=== PATIENT | male | born 1965 | race African-American/Black ===

== ENCOUNTER 2016-10-17 18:56 | Emergency (ER) | payer MEDICAID, OTHER ==
[~2016-10-17] VITALS: Ht 185.4 cm; Wt 117.0 kg
[~2016-10-17 18:56] MED LIST: BUSPAR10 MG ORAL; DIURIL25 MG ORAL; HYDRALAZINE HCL50 MG ORAL; LISINOPRIL20 MG ORAL; LISINOPRIL5 MG ORAL; MELOXICAM15 MG PO; NAPROXEN25 G1 MC
[2016-10-17] MEDS ORDERED: Ketorolac 60mg Inj IM ONE (20:15)
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
[2016-10-17] MEDS ORDERED: IBUPROFEN600 MG ORAL (20:57)
[2016-10-17] MEDS ORDERED: NORCO 5-325 TA1 EACH ORAL (20:57)
[2016-10-17] MEDS ORDERED: CYCLOBENZAPRINE10 MG ORAL (20:57)
[2016-10-17 21:08] VITALS: BP 146/90
[2016-10-17 21:09] VITALS: BP 146/90
--- NOTE | 2016-10-18 17:46 | Diagnostic Imaging Report ---
Indication: Chest pain Technique: Two views of the chest Comparison: 12/10/2015 single view chest Findings: Lungs and pleural spaces are clear. Heart is borderline enlarged. Aorta is tortuous. There are degenerative spondylosis changes Impression: Borderline cardiomegaly No acute process.
== END 2016-10-17 21:11 | disposition home or self-care (01) ==
LOC: EMR 19:45
DX: S00.83XA Contusion of other part of head, initial encounter (principal); S20.212A Contusion of left front wall of thorax, initial encounter; S16.1XXA Strain of muscle, fascia and tendon at neck level, initial encounter; V43.52XA Car driver injured in collision with other type car in traffic accident, initial encounter; Y92.89 Other specified places as the place of occurrence of the external cause; I10 Essential (primary) hypertension; Z88.0 Allergy status to penicillin
CPT/HCPCS: 71020; 96372; 99283

== ENCOUNTER 2017-01-16 09:37 | Emergency (ER) | payer SELFPAY ==
[~2017-01-16] VITALS: Ht 185.4 cm; Wt 117.9 kg
[~2017-01-16 09:37] MED LIST changes: +CYCLOBENZAPRINE10 MG ORAL; +IBUPROFEN600 MG ORAL; +NORCO 5-325 TA1 EACH ORAL
--- NOTE | 2017-01-16 09:52 | Emergency Room Report ---
History of Present Illness General Chief Complaint: Abdominal Pain Source: Patient Present Illness HPI The patient presents with left flank and groin pain. This began on Saturday. It is severe. Vomited one time. He was seen at [facility] had a CT done that showed a kidney stone on the left-hand side. He's had some chills but no documented fever. They gave him a prescription for [place] but this is not controlling the pain. He's never had this problem before. He denies any diarrhea. Pain rated 10/10, sharp and burning, radiating to groin from L lower abdomen. No dysuria. They also prescribed a green pill to "dissolve" the stone. No rashes, headache, joint pain, depression, diabetes. Allergies: Coded Allergies: PENICILLINS (Verified Allergy, Unknown, 12/10/15) Patient History Past Medical History: see triage record Social History: Denies: smoking Social History Narrative He drove himself here Reviewed Nursing Documentation: PMH: Agreed, PSxH: Agreed Nursing Documentation-PMH Past Medical History: No History, Except For Hx Hypertension: Yes Review of Systems All Other Systems: negative except mentioned in HPI Physical Exam Vital Signs Date Time Temp Pulse Resp B/P Pulse Ox O2 Delivery O2 Flow Rate FiO2 01/16/17 09:42 97.9 57 16 188/109 98 Room Air Sp02 EP Interpretation: reviewed, normal General Appearance: alert, GCS 15, mild distress Head: normocephalic Eyes: bilateral eye PERRL, bilateral eye normal inspection ENT: moist mucus membranes Neck: supple Respiratory: lungs clear, normal breath sounds Cardiovascular #1: regular rate, rhythm Cardiovascular #2: 2+ radial (R) Gastrointestinal: normal inspection, normal bowel sounds, non tender, no mass, non-distended Musculoskeletal: back normal, gait/station normal, normal range of motion Neurologic: alert, oriented x3, grossly normal Psychiatric: other - in pain Skin: normal inspection, warm/dry Medical Decision Making Diagnostic Impression: Primary Impression: Left ureteral stone ER Course Patient presents with left flank and groin pain. He reports that a CT scan was done which revealed a kidney stone. We will be obtaining at CT results from [facility]. The been and that we may get an ultrasound or repeat CT. The patient will receive labs here and urinalysis. In addition to that and get IV hydration and analgesia. CT [facility] with 2mm stone L. Creat = 1.19. Labs with creat 1.4. Hematuria without pyuria. Normal WBC. Patient pain free with analgesia and hydration. Discussed need to collect stone. Patient stable for outpatient observation and treatment. Laboratory Tests Test 01/16/17 09:58 01/16/17 10:00 White Blood Count 7.5 K/UL (4.8-10.8) Red Blood Count 5.22 M/UL (4.70-6.10) Hemoglobin 16.5 G/DL (14.2-18.0) Hematocrit 49.6 % (42.0-52.0) Mean Corpuscular Volume 95 FL (80-99) Mean Corpuscular Hemoglobin 31.7 PG (27.0-31.0) H Mean Corpuscular Hemoglobin Concent 33.3 G/DL (32.0-36.0) Red Cell Distribution Width 11.4 % (11.6-14.8) L Platelet Count 349 K/UL (150-450) Mean Platelet Volume 7.8 FL (6.5-10.1) Neutrophils (%) (Auto) 73.2 % (45.0-75.0) Lymphocytes (%) (Auto) 17.9 % (20.0-45.0) L Monocytes (%) (Auto) 7.9 % (1.0-10.0) Eosinophils (%) (Auto) 0.3 % (0.0-3.0) Basophils (%) (Auto) 0.8 % (0.0-2.0) Sodium Level 138 mEQ/L (135-145) Potassium Level 3.5 mEQ/L (3.4-4.9) Chloride Level 96 mEQ/L (98-107) L Carbon Dioxide Level 21 mEQ/L (20-30) Anion Gap 21 (5-15) H Blood Urea Nitrogen 9 mg/dL (7-23) Creatinine 1.4 mg/dL (0.7-1.2) H Estimate Glomerular Filtration Rate > 60 mL/min (>60) Glucose Level 133 mg/dL (74-106) H Calcium Level 9.7 mg/dL (8.6-10.2) Total Bilirubin 1.6 mg/dL (0.0-1.2) H Direct Bilirubin 0.2 mg/dL (0.1-0.3) Aspartate Amino Transferase (AST) 25 U/L (5-40) Alanine Aminotransferase (ALT) 24 U/L (3-41) Alkaline Phosphatase 73 U/L (40-129) Total Protein 8.0 g/dL (6.6-8.7) Albumin 4.7 g/dL (3.5-5.2) Globulin 3.3 g/dL Albumin/Globulin Ratio 1.4 (1.0-2.7) Lipase 32 U/L (< 60) Urine Color Pale yellow Urine Appearance Clear Urine pH 8 (4.5-8.0) Urine Specific [place] 1.010 (1.005-1.035) Urine Protein Negative (NEGATIVE) Urine Glucose (UA) Negative (NEGATIVE) Urine Ketones 2+ (NEGATIVE) H Urine Occult Blood 3+ (NEGATIVE) H Urine Nitrite Negative (NEGATIVE) Urine Bilirubin Negative (NEGATIVE) Urine Urobilinogen Normal MG/DL (0.0-1.0) Urine Leukocyte Esterase Negative (NEGATIVE) Urine RBC 10-15 /HPF (0 - 0) H Urine WBC 0-2 /HPF (0 - 0) Urine Squamous Epithelial Cells Occasional /LPF Urine Bacteria Few /HPF (NONE) Last Vital Signs Date Time Temp Pulse Resp B/P Pulse Ox O2 Delivery O2 Flow Rate FiO2 01/16/17 13:12 78 16 130/80 98 Room Air 01/16/17 10:29 97.9 Status: improved Disposition: HOME, SELF-CARE Condition: Improved Keith Hand M.D. January 16, 2017 09:51
[2017-01-16] MEDS ORDERED: Morphine Sulfate 4mg/ml Inj IVP ONE (10:00)
[2017-01-16] MEDS ORDERED: Ketorolac 30mg Inj IV ONE (10:00)
[2017-01-16 10:03] VITALS: BP 188/109
[2017-01-16 10:07] LABS: BASOPHILS % (AUTO) 0.8 % (0.0-2.0); EOSINOPHILS % (AUTO) 0.3 % (0.0-3.0); LYMPHOCYTES % (AUTO) 17.9 % (20.0-45.0); MEAN CORPUSCULAR HEMOGLOBIN 31.7 PG (27.0-31.0); MEAN CORPUSCULAR HGB CONC 33.3 G/DL (32.0-36.0); MEAN CORPUSCULAR VOLUME 95 FL (80-99); MEAN PLATELET VOLUME 7.8 FL (6.5-10.1); MONOCYTES % (AUTO) 7.9 % (1.0-10.0); NEUTROPHILS % (AUTO) 73.2 % (45.0-75.0); PLATELET COUNT 349 K/UL (150-450); RED BLOOD COUNT 5.22 M/UL (4.70-6.10); RED CELL DISTRIBUTION WIDTH 11.4 % (11.6-14.8); WHITE BLOOD COUNT 7.5 K/UL (4.8-10.8)
[2017-01-16 10:21] LABS: ALANINE AMINOTRANSFERASE 24 U/L (3-41); ALBUMIN/GLOBULIN RATIO 1.4 (1.0-2.7); ANION GAP 21 (5-15); ASPARTATE AMINO TRANSFERASE 25 U/L (5-40); CALCIUM 9.7 mg/dL (8.6-10.2); CARBON DIOXIDE 21 mEQ/L (20-30); CHLORIDE 96 mEQ/L (98-107); CREATININE 1.4 mg/dL (0.7-1.2); GLOMERULAR FILTRATION RATE > 60 mL/min (>60); HEMOLYSIS 3; LIPASE 32 U/L (< 60); POTASSIUM 3.5 mEQ/L (3.4-4.9); SODIUM 138 mEQ/L (135-145)
[2017-01-16 10:34] LABS: BILIRUBIN,DIRECT 0.2 mg/dL (0.1-0.3)
[2017-01-16 11:47] VITALS: BP 169/77
[2017-01-16 11:53] LABS: APPEARANCE,URINE CLEAR; KETONES,URINE 2+ (NEGATIVE); LEUKOCYTE ESTERASE ,URINE NEGATIVE (NEGATIVE); NITRITE,URINE NEGATIVE (NEGATIVE); PH,URINE 8 (4.5-8.0); PROTEIN,URINE NEGATIVE (NEGATIVE); UROBILINOGEN,URINE NORMAL MG/DL (0.0-1.0)
[2017-01-16 12:34] LABS: BACTERIA,URINE FEW /HPF; SQUAMOUS EPITHELIAL CELL,UR OCCASIONAL /LPF (NONE/OCC); WBC,URINE 0-2 /HPF (0 - 0)
[2017-01-16 13:12] VITALS: BP 130/80
== END 2017-01-16 13:00 | disposition home or self-care (01) ==
LOC: EMR 10:06
DX: N20.1 Calculus of ureter (principal); R11.10 Vomiting, unspecified; Z88.6 Allergy status to analgesic agent; I10 Essential (primary) hypertension
CPT/HCPCS: 36415; 80053; 81003; 82248; 83690; 85025; 96360; 96361; 96374; 96375; 99284; J1885; J2270; J2405

== ENCOUNTER 2018-01-22 21:08 | Inpatient (IN) | payer SELFPAY ==
[~2018-01-22] VITALS: Ht 185.4 cm; Wt 118.4 kg
[2018-01-22] MEDS ORDERED: NKM (21:26)
[2018-01-22 21:35] VITALS: BP 171/78
--- NOTE | 2018-01-22 21:58 | Emergency Room Report ---
History of Present Illness General Chief Complaint: Headache Source: Patient Present Illness HPI Patient is a 52-year-old male who presented after increased headache and associated dizziness. Patient reports having increased left-sided arm numbness which is intermittent in nature. Patient states this had been on and off for several weeks. Patient has prior history of hypertension but does not seek medical care regularly. He is unsure of his cholesterol. He denies any smoking. The patient denies any fever. Allergies: Coded Allergies: PENICILLINS (Verified Allergy, Unknown, 12/10/15) Patient History Past Medical History: see triage record Reviewed Nursing Documentation: PMH: Agreed; PSxH: Agreed Nursing Documentation-PMH Past Medical History: No History, Except For Hx Hypertension: Yes Review of Systems All Other Systems: negative except mentioned in HPI Physical Exam Vital Signs Date Time Temp Pulse Resp B/P (MAP) Pulse Ox O2 Delivery O2 Flow Rate FiO2 01/22/18 21:19 97.6 87 16 187/96 98 Room Air 97.5 Sp02 EP Interpretation: reviewed, normal General Appearance: normal inspection, well appearing, no apparent distress, alert, GCS 15, non-toxic Head: atraumatic ENT: normal ENT inspection, hearing grossly normal, normal voice Neck: normal inspection, full range of motion, supple, no bony tend Respiratory: normal inspection, lungs clear, normal breath sounds, no respiratory distress, no retraction, no wheezing Cardiovascular #1: regular rate, rhythm, no edema Gastrointestinal: normal inspection, normal bowel sounds, non tender, soft, no guarding, no hernia Genitourinary: no CVA tenderness Musculoskeletal: normal inspection, back normal, normal range of motion Neurologic: normal inspection, alert, oriented x3, responsive, harness worker 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 Differential diagnosis included but not limited to urinary tract infection, anemia, arrhythmia, abdominal aortic aneurysm, CVA, subarachnoid hemorrhage, benign positional vertigo.Because of complexity of patient's case laboratory testing and imaging studies were ordered.The laboratory studies are unremarkable. Patient was noted to have the bradycardia on EKG with a heart rate in the 40s. Patient was given aspirin.Dr. Couch was contacted for inpatient management due to need for inpatient monitoring and treatment. Labs Test 01/22/18 22:15 White Blood Count 5.5 K/UL (4.8-10.8) Red Blood Count 4.89 M/UL (4.70-6.10) Hemoglobin 15.5 G/DL (14.2-18.0) Hematocrit 45.2 % (42.0-52.0) Mean Corpuscular Volume 92 FL (80-99) Mean Corpuscular Hemoglobin 31.6 PG (27.0-31.0) Mean Corpuscular Hemoglobin Concent 34.2 G/DL (32.0-36.0) Red Cell Distribution Width 11.1 % (11.6-14.8) Platelet Count 307 K/UL (150-450) Mean Platelet Volume 7.3 FL (6.5-10.1) Neutrophils (%) (Auto) 41.7 % (45.0-75.0) Lymphocytes (%) (Auto) 44.1 % (20.0-45.0) Monocytes (%) (Auto) 9.6 % (1.0-10.0) Eosinophils (%) (Auto) 2.6 % (0.0-3.0) Basophils (%) (Auto) 2.1 % (0.0-2.0) Prothrombin Time 10.7 SEC (9.30-11.50) Prothromb Time International Ratio 1.0 (0.9-1.1) Activated Partial Thromboplast Time 32 SEC (23-33) Sodium Level 137 MMOL/L (136-145) Potassium Level 3.5 MMOL/L (3.5-5.1) Chloride Level 104 MMOL/L (98-107) Carbon Dioxide Level 25 MMOL/L (21-32) Anion Gap 8 mmol/L (5-15) Blood Urea Nitrogen 11 mg/dL (7-18) Creatinine 1.1 MG/DL (0.55-1.30) Estimat Glomerular Filtration Rate > 60 mL/min (>60) Glucose Level 100 MG/DL (74-106) Calcium Level 9.4 MG/DL (8.5-10.1) Total Bilirubin 1.1 MG/DL (0.2-1.0) Direct Bilirubin 0.2 MG/DL (0.0-0.3) Aspartate Amino Transf (AST/SGOT) 24 U/L (15-37) Alanine Aminotransferase (ALT/SGPT) 34 U/L (12-78) Alkaline Phosphatase 62 U/L (46-116) Total Creatine Kinase 520 U/L (26-308) Creatine Kinase MB 1.7 NG/ML (0.0-3.6) Creatine Kinase MB Relative Index 0.3 Troponin I 0.005 ng/mL (0.000-0.056) Pro-B-Type Natriuretic Peptide 37 pg/mL (0-125) Total Protein 7.7 G/DL (6.4-8.2) Albumin 4.0 G/DL (3.4-5.0) Globulin 3.7 g/dL Albumin/Globulin Ratio 1.1 (1.0-2.7) EKG Diagnostic Results Rate: bradycardiac Rhythm: NSR - 43 ST Segments: no acute changes ASA given to the pt in ED: Yes Rhythm Strip Diag. Results EP Interpretation: yes Rhythm: NSR, no PVC's, no ectopy Last Vital Signs Date Time Temp Pulse Resp B/P (MAP) Pulse Ox O2 Delivery O2 Flow Rate FiO2 01/22/18 21:19 97.6 87 16 187/96 98 Room Air 97.5 Status: unchanged Disposition: ADMITTED INPATIENT Condition: Serious Referrals: NOT CHOSEN IPA/,REFERRING (PCP) Manny Willams MD January 22, 2018 21:58
[2018-01-22] MEDS ORDERED: Nitroglycerin Subl 0.4mg tab SL PRN (22:45)
[2018-01-22] MEDS ORDERED: Aspirin Baby 81mg ORAL ONE (22:45)
[2018-01-22 23:00] VITALS: BP 114/94
[2018-01-22 23:23] LABS: BASOPHILS % (AUTO) 2.1 % (0.0-2.0); EOSINOPHILS % (AUTO) 2.6 % (0.0-3.0); HEMATOCRIT 45.2 % (42.0-52.0); HEMOGLOBIN 15.5 G/DL (14.2-18.0); LYMPHOCYTES % (AUTO) 44.1 % (20.0-45.0); MEAN CORPUSCULAR VOLUME 92 FL (80-99); MONOCYTES % (AUTO) 9.6 % (1.0-10.0); NEUTROPHILS % (AUTO) 41.7 % (45.0-75.0); PLATELET COUNT 307 K/UL (150-450); RED BLOOD COUNT 4.89 M/UL (4.70-6.10); RED CELL DISTRIBUTION WIDTH 11.1 % (11.6-14.8); WHITE BLOOD COUNT 5.5 K/UL (4.8-10.8)
[2018-01-22 23:27] LABS: ANION GAP 8 mmol/L (5-15); BLOOD UREA NITROGEN 11 mg/dL (7-18); CALCIUM 9.4 MG/DL (8.5-10.1); CARBON DIOXIDE 25 MMOL/L (21-32); CHLORIDE 104 MMOL/L (98-107); CREATININE 1.1 MG/DL (0.55-1.30); POTASSIUM 3.5 MMOL/L (3.5-5.1); SODIUM 137 MMOL/L (136-145)
[2018-01-22 23:42] LABS: ALANINE AMINOTRANSFERASE 34 U/L (12-78); ALBUMIN/GLOBULIN RATIO 1.1 (1.0-2.7); ALKALINE PHOSPHATASE 62 U/L (46-116); ASPARTATE AMINO TRANSFERASE 24 U/L (15-37); BILIRUBIN,TOTAL 1.1 MG/DL (0.2-1.0); CKMB 1.7 NG/ML (0.0-3.6); CREATINE KINASE 520 U/L (26-308)
[2018-01-23] VITALS (9 sets, daily range): BP systolic 119–180; BP diastolic 59–97
[2018-01-23 00:05] LABS: BILIRUBIN,DIRECT 0.2 MG/DL (0.0-0.3)
[2018-01-23] MEDS ORDERED: Nitroglycerin Subl 0.4mg tab SL PRN (03:30)
[2018-01-23] MEDS: HydrALAZINE 10mg Tab ORAL SCH ×3 (05:49→21:02)
[2018-01-23 07:31] LABS: ALBUMIN/GLOBULIN RATIO 1.1 (1.0-2.7); ALKALINE PHOSPHATASE 63 U/L (46-116); ANION GAP 16 mmol/L (5-15); ASPARTATE AMINO TRANSFERASE 28 U/L (15-37); BILIRUBIN,TOTAL 0.9 MG/DL (0.2-1.0); BLOOD UREA NITROGEN 11 mg/dL (7-18); CALCIUM 9.3 MG/DL (8.5-10.1); CARBON DIOXIDE 20 MMOL/L (21-32); CHLORIDE 103 MMOL/L (98-107); CHOLESTEROL 188 MG/DL (< 200); CREATININE 1.2 MG/DL (0.55-1.30); HDL CHOLESTEROL 34 MG/DL (40-60); POTASSIUM 3.8 MMOL/L (3.5-5.1); SODIUM 139 MMOL/L (136-145); TRIGLYCERIDES 84 MG/DL (30-150)
[2018-01-23 08:06] LABS: BASOPHILS % (AUTO) 1.5 % (0.0-2.0); EOSINOPHILS % (AUTO) 2.7 % (0.0-3.0); HEMOGLOBIN 15.4 G/DL (14.2-18.0); LYMPHOCYTES % (AUTO) 39.7 % (20.0-45.0); MEAN CORPUSCULAR VOLUME 93 FL (80-99); MONOCYTES % (AUTO) 12.4 % (1.0-10.0); NEUTROPHILS % (AUTO) 43.8 % (45.0-75.0); PLATELET COUNT 324 K/UL (150-450); RED BLOOD COUNT 4.76 M/UL (4.70-6.10); RED CELL DISTRIBUTION WIDTH 10.9 % (11.6-14.8); WHITE BLOOD COUNT 4.6 K/UL (4.8-10.8)
[2018-01-23 08:15] LABS: ALANINE AMINOTRANSFERASE 35 U/L (12-78)
--- NOTE | 2018-01-23 08:33 | History & Physical ---
History and Physical History & Physicial seen and examined. Dictation completed Harish Couch MD January 23, 2018 08:33
[2018-01-23] MEDS: Aspirin Baby 81mg ORAL SCH (08:55)
[2018-01-23] MEDS: Meloxicam 15 MG TAB ORAL SCH (08:55)
[2018-01-23] MEDS: BusPIRone 5mg Tab ORAL SCH (08:57)
[2018-01-23] MEDS: Cyclobenzaprine 10mg Tab ORAL SCH ×3 (08:57→17:28)
[2018-01-23] MEDS: Heparin 5000 units/ml inj SUBQ SCH ×3 (08:58→21:06)
[2018-01-23] MEDS ORDERED: Lisinopril 20mg tab ORAL SCH (09:00)
--- NOTE | 2018-01-23 09:53 | Diagnostic Imaging Report ---
Indication: Altered mental status Technique: Contiguous 5 mm thick transaxial imaging of the head obtained in a Siemens Sensation [address] scanner. Soft tissue and bone windows generated. Automatic Exposure Control was utilized. Total Dose length Product (DLP): 1376.[address] Dose Index Volume (CTDIvol): 70.38 mGy Comparison: 12/10/2015 Findings: The size and configuration of the cortical sulci, basal cisterns, and ventricles are within normal limits for age. There is no mass effect, midline shift, or edema identified. There is no evidence of acute hemorrhage or abnormal intra-axial or extra-axial fluid collections. The bones and soft tissues are unremarkable. Impression: No mass effect, edema or acute bleed. The CT scanner at [facility] is accredited by the [employer] and the scans are performed using dose optimization techniques as appropriate to a performed exam including Automatic Exposure control.
--- NOTE | 2018-01-23 11:01 | Diagnostic Imaging Report ---
Indication: Dyspnea Comparison: 10/17/2016 A single view chest radiograph was obtained. Findings: Cardiomediastinal appearance is within normal limits for age. Aorta is ectatic. Pulmonary vascularity is appropriate. The diaphragmatic contour is smooth and costophrenic angles are sharp. No pleural effusions are identified. The bones are unremarkable. Impression: No acute findings
--- NOTE | 2018-01-23 12:15 | History and Physical Report ---
DATE OF ADMISSION: 01/22/2018 SOURCE OF INFORMATION: The patient and EMR. HISTORY OF PRESENT ILLNESS: The patient is a 52-year-old male with a history of blood pressure. The patient reported noncompliance with medications secondary to running out of the medications. The patient reportedly has more than 100 and 200 systolic blood pressure. The patient had incidental blood pressure checkup by his girlfriend. The patient denies any chest pain or shortness of breath. Denies any nausea or vomiting. Denies any headaches or blurry vision. REVIEW OF SYSTEMS: All 12 elements of review of systems reviewed. Pertinent positives and negatives as above. FAMILY HISTORY: Reviewed and noncontributory. SOCIAL HISTORY: The patient denies history of smoking, illicit drug abuse, or alcohol abuse. PAST SURGICAL HISTORY: History of elective surgery. MEDICATIONS: Current hospital medications including, but not limited to, Protonix 40 mg daily, lisinopril 20 mg daily, hydrochlorothiazide 25 mg daily, hydralazine 10 mg q. 8 hours, BuSpar 5 mg daily, and aspirin 81 mg daily. PHYSICAL EXAMINATION: VITAL SIGNS: Blood pressure 160/80, temperature 98.2, pulse oximetry 98% on room air, pulse rate 57, and temperature 97.2. HEAD AND NECK: Atraumatic and normocephalic. CHEST: Clear to auscultation. HEART: S1 and S2. Regular rate and rhythm. ABDOMEN: Soft. No organomegaly. MUSCULOSKELETAL: No gross focal motor deficit. NEUROLOGIC: The patient is awake, alert, and oriented x3. LABORATORY DATA: Labs dated 01/22 shows a hemoglobin of10.4 and platelets of 324. Sodium of 139, potassium 3.8, BUN 11, and creatinine 1.2. LDL 139. ASSESSMENT: 1. Hypertensive emergency. 2. Hyperlipidemia. 3. Gastrointestinal and deep venous thrombosis prophylaxis. PLAN OF CARE: We will resume the home medications. We will add hydralazine 10 mg p.o. b.i.d. We will start him on atorvastatin 10 mg daily. We will monitor. Harish Couch M.D. DR: BINDU JOB#: [id number] CC: BALWINDER
[2018-01-24 04:00] VITALS: BP 153/75
[2018-01-24] MEDS: HydrALAZINE 10mg Tab ORAL SCH (05:36)
[2018-01-24 08:00] VITALS: BP 175/94
[2018-01-24] MEDS: Aspirin Baby 81mg ORAL SCH (08:27)
[2018-01-24] MEDS: Cyclobenzaprine 10mg Tab ORAL SCH ×2 (08:27→13:00)
[2018-01-24] MEDS: BusPIRone 5mg Tab ORAL SCH (08:27)
[2018-01-24] MEDS: Heparin 5000 units/ml inj SUBQ SCH (08:32)
[2018-01-24 08:55] LABS: BASOPHILS % (AUTO) 1.4 % (0.0-2.0); EOSINOPHILS % (AUTO) 3.9 % (0.0-3.0); HEMATOCRIT 46.3 % (42.0-52.0); HEMOGLOBIN 15.8 G/DL (14.2-18.0); LYMPHOCYTES % (AUTO) 42.5 % (20.0-45.0); MEAN CORPUSCULAR VOLUME 95 FL (80-99); MONOCYTES % (AUTO) 10.1 % (1.0-10.0); NEUTROPHILS % (AUTO) 42.1 % (45.0-75.0); PLATELET COUNT 307 K/UL (150-450); RED CELL DISTRIBUTION WIDTH 11.3 % (11.6-14.8); WHITE BLOOD COUNT 4.1 K/UL (4.8-10.8)
[2018-01-24 09:20] LABS: ALANINE AMINOTRANSFERASE 32 U/L (12-78); ALBUMIN 3.7 G/DL (3.4-5.0); ALKALINE PHOSPHATASE 67 U/L (46-116); ANION GAP 11 mmol/L (5-15); ASPARTATE AMINO TRANSFERASE 20 U/L (15-37); BLOOD UREA NITROGEN 10 mg/dL (7-18); CALCIUM 8.9 MG/DL (8.5-10.1); CARBON DIOXIDE 26 MMOL/L (21-32); CHLORIDE 102 MMOL/L (98-107); POTASSIUM 3.6 MMOL/L (3.5-5.1); SODIUM 139 MMOL/L (136-145)
[2018-01-24] MEDS: Meloxicam 15 MG TAB ORAL SCH (09:36)
--- NOTE | 2018-01-24 10:39 | General Progress Note ---
Assessment/Plan Status: stable Assessment/Plan S: appears comfortable' O: denies cp or sob PHYSICAL EXAMINATION: VITAL SIGNS: HEAD AND NECK: Atraumatic and normocephalic. CHEST: Clear to auscultation. HEART: S1 and S2. Regular rate and rhythm. ABDOMEN: Soft. No organomegaly. MUSCULOSKELETAL: No gross focal motor deficit. NEUROLOGIC: The patient is awake, alert, and oriented x3. Meds: reveiwed and reconcilled including Hydralazin 10 mg tid ASSESSMENT: 1. Hypertensive emergency. 2. Hyperlipidemia. 3. Gastrointestinal and deep venous thrombosis prophylaxis. PLAN OF CARE: We will increase hydralazine 10 to 25 mg p.o. t.i.d. will follow Subjective Allergies: Coded Allergies: PENICILLINS (Verified Allergy, Unknown, 12/10/15) Objective Last 24 Hour Vital Signs Date Time Temp Pulse Resp B/P (MAP) Pulse Ox O2 Delivery O2 Flow Rate FiO2 01/24/18 08:30 175/94 01/24/18 05:36 153/75 01/24/18 04:15 45 01/24/18 04:00 97.2 49 20 153/75 95 Nasal Cannula 2.0 97.2 01/23/18 23:51 54 01/23/18 23:48 97.5 53 21 163/79 95 Nasal Cannula 2.0 97.5 01/23/18 21:02 167/97 01/23/18 21:00 97.9 50 20 167/97 97 Nasal Cannula 2.0 97.9 01/23/18 19:54 43 01/23/18 18:27 97.6 01/23/18 17:28 98.0 01/23/18 16:07 98.0 45 19 160/89 97 Nasal Cannula 2.0 98.0 01/23/18 16:00 41 01/23/18 13:44 97.0 01/23/18 13:44 141/91 01/23/18 12:00 97.8 20 141/91 97 Nasal Cannula 2.0 97.8 01/23/18 12:00 43 Intake and Output 01/23/18 01/24/18 19:00 07:00 Intake Total 520 ml Balance 520 ml Intake Oral 520 ml # Voids 3 2 Laboratory Tests 01/23/18 14:50: Troponin I 0.012 01/23/18 21:50: Troponin I 0.012 01/24/18 07:15: White Blood Count 4.1L, Red Blood Count 4.90, Hemoglobin 15.8, Hematocrit 46.3, Mean Corpuscular Volume 95, Mean Corpuscular Hemoglobin 32.2H, Mean Corpuscular Hemoglobin Concent 34.1, Red Cell Distribution Width 11.3L, Platelet Count 307, Mean Platelet Volume 8.4, Neutrophils (%) (Auto) 42.1L, Lymphocytes (%) (Auto) 42.5, Monocytes (%) (Auto) 10.1H, Eosinophils (%) (Auto) 3.9H, Basophils (%) ( Auto) 1.4, Sodium Level 139, Potassium Level 3.6, Chloride Level 102, Carbon Dioxide Level 26, Anion Gap 11, Blood Urea Nitrogen 10, Creatinine 1.0, Estimat Glomerular Filtration Rate > 60, Glucose Level 106, Calcium Level 8.9, Total Bilirubin 1.0, Aspartate Amino Transf (AST/SGOT) 20, Alanine Aminotransferase ( ALT/SGPT) 32, Alkaline Phosphatase 67, Total Protein 7.4, Albumin 3.7, Globulin 3.7, Albumin/Globulin Ratio 1.0 Height (Feet): 6 Height (Inches): 1.00 Weight (Pounds): 261 Harish Couch MD January 24, 2018 10:39
[2018-01-24 12:00] VITALS: BP 144/77
--- NOTE | 2018-01-24 13:17 | Cardiac Electrophysiology PN ---
Subjective Subjective Dictated and DW RN and Dr. Couch and pts girl friend [id number] Objective Last 24 Hour Vital Signs Date Time Temp Pulse Resp B/P (MAP) Pulse Ox O2 Delivery O2 Flow Rate FiO2 01/24/18 08:30 175/94 01/24/18 08:00 97.0 49 18 175/94 95 Nasal Cannula 2.0 97.0 01/24/18 05:36 153/75 01/24/18 04:15 45 01/24/18 04:00 97.2 49 20 153/75 95 Nasal Cannula 2.0 97.2 01/23/18 23:51 54 01/23/18 23:48 97.5 53 21 163/79 95 Nasal Cannula 2.0 97.5 01/23/18 21:02 167/97 01/23/18 21:00 97.9 50 20 167/97 97 Nasal Cannula 2.0 97.9 01/23/18 19:54 43 01/23/18 18:27 97.6 01/23/18 17:28 98.0 01/23/18 16:07 98.0 45 19 160/89 97 Nasal Cannula 2.0 98.0 01/23/18 16:00 41 01/23/18 13:44 97.0 01/23/18 13:44 141/91 Intake and Output 01/23/18 01/24/18 19:00 07:00 Intake Total 520 ml Balance 520 ml Intake Oral 520 ml # Voids 3 2 Laboratory Tests Test 01/23/18 14:50 01/23/18 21:50 01/24/18 07:15 Troponin I 0.012 ng/mL (0.000-0.056) 0.012 ng/mL (0.000-0.056) White Blood Count 4.1 K/UL (4.8-10.8) L Red Blood Count 4.90 M/UL (4.70-6.10) Hemoglobin 15.8 G/DL (14.2-18.0) Hematocrit 46.3 % (42.0-52.0) Mean Corpuscular Volume 95 FL (80-99) Mean Corpuscular Hemoglobin 32.2 PG (27.0-31.0) H Mean Corpuscular Hemoglobin Concent 34.1 G/DL (32.0-36.0) Red Cell Distribution Width 11.3 % (11.6-14.8) L Platelet Count 307 K/UL (150-450) Mean Platelet Volume 8.4 FL (6.5-10.1) Neutrophils (%) (Auto) 42.1 % (45.0-75.0) L Lymphocytes (%) (Auto) 42.5 % (20.0-45.0) Monocytes (%) (Auto) 10.1 % (1.0-10.0) H Eosinophils (%) (Auto) 3.9 % (0.0-3.0) H Basophils (%) (Auto) 1.4 % (0.0-2.0) Sodium Level 139 MMOL/L (136-145) Potassium Level 3.6 MMOL/L (3.5-5.1) Chloride Level 102 MMOL/L (98-107) Carbon Dioxide Level 26 MMOL/L (21-32) Anion Gap 11 mmol/L (5-15) Blood Urea Nitrogen 10 mg/dL (7-18) Creatinine 1.0 MG/DL (0.55-1.30) Estimat Glomerular Filtration Rate > 60 mL/min (>60) Glucose Level 106 MG/DL (74-106) Calcium Level 8.9 MG/DL (8.5-10.1) Total Bilirubin 1.0 MG/DL (0.2-1.0) Aspartate Amino Transf (AST/SGOT) 20 U/L (15-37) Alanine Aminotransferase (ALT/SGPT) 32 U/L (12-78) Alkaline Phosphatase 67 U/L (46-116) Total Protein 7.4 G/DL (6.4-8.2) Albumin 3.7 G/DL (3.4-5.0) Globulin 3.7 g/dL Albumin/Globulin Ratio 1.0 (1.0-2.7) Myron Arciniega MD January 24, 2018 13:17
[2018-01-24] MEDS ORDERED: HydrALAZINE 25mg tab ORAL SCH (14:00)
[2018-01-24] MEDS ORDERED: Lisinopril 20mg tab ORAL ONE (14:30)
[2018-01-24 16:00] VITALS: BP 143/94
[2018-01-24] MEDS ORDERED: ASPIRIN81 MG ORAL (16:31)
[2018-01-24] MEDS ORDERED: NORVASC10 MG ORAL (16:31)
[2018-01-24] MEDS ORDERED: ATORVASTATIN CA20 MG ORAL (16:32)
[2018-01-24] MEDS ORDERED: Lisinopril 20mg tab ORAL SCH (21:00)
--- NOTE | 2018-01-24 22:45 | Cardiology Report ---
APPROVED REPORT EKG Measurement Heart [id number] Marked sinus bradycardia Right bundle branch block Abnormal ECG
--- NOTE | 2018-01-25 00:15 | Consultation ---
DATE OF CONSULTATION: 01/24/2018 CARDIOLOGY CONSULTATION CONSULTING PHYSICIAN: Myron Arciniega M.D. REFERRING PHYSICIAN: Harish Couch M.D. REASON FOR CONSULTATION: Accelerated hypertension. HISTORY OF PRESENT ILLNESS: The patient is a 52-year-old gentleman, who came to the emergency room with uncontrolled blood pressure. The patient said that he ran out of his medications as he did not have insurance. The patient had his blood pressure checked by his girlfriend, who is a family preservation caseworker at [employer] [facility] [employer], and was found to have blood pressure in the 200. The patient, however, denies any chest pain, palpitation, or shortness of breath. On telemetry, his heart rate was as low as 43, but he states that he and he never had syncope or presyncope. PAST MEDICAL HISTORY: Hypertension. Denies any prior myocardial infarction or coronary artery disease. FAMILY HISTORY: Noncontributory. SOCIAL HISTORY: Denies smoking, drinking alcohol, or use of illicit drugs. REVIEW OF SYSTEMS: Review of systems was negative other than what was mentioned in the history of present illness. PHYSICAL EXAMINATION: VITAL SIGNS: Blood pressure of 175/94, pulse is 49, respirations 18, and he is afebrile. HEAD AND NECK: No JVD or carotid bruits. LUNGS: Clear. CARDIOVASCULAR: Regular S1 and S2 with no gallop. ABDOMEN: Soft. EXTREMITIES: No pitting edema. LABORATORY AND DIAGNOSTIC DATA: His labs show white count of 4.1, hemoglobin 15.8, hematocrit 46.3, and platelet count of 307. Sodium 139, potassium 3.8, BUN of 10 and creatinine of 1. Troponin negative x3. ASSESSMENT AND PLAN: 1. Accelerated hypertension. The patient is on hydralazine 25 mg every 8 hours. We will increase it to 50 mg every 8 hours. The patient already had undergone echocardiogram that showed normal left ventricular systolic function, ejection fraction of 60%. 2. Sinus bradycardia. 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 He denies syncope or presyncope. Avoid sinus or AV sharron lillian and check thyroid function test to make sure he is not hypothyroid. It is of note that the patient already ruled out for myocardial infarction. Thank you very much, Dr. Couch, for allowing me to participate in the care of this patient. Please do not hesitate to contact me for any questions regarding my evaluation. Myron Arciniega M.D. DR: MATT JOB#: [id number] CC:
--- NOTE | 2018-01-25 16:39 | Discharge Summary ---
Discharge Summary Discharge Summary _ DATE OF ADMISSION: 01/22/2018 DATE OF DISCHARGE: 01/24/2018 REASON FOR ADMISSION: 52 years old male with past medical history of hypertension, presented to emergency department with headache and associated dizziness. Patient also reported left-sided arm numbness, intermittent in nature. Patient reported symptoms going on and off for several weeks. Patient admitted of not being under regular medical care. Patient denied smoking. Upon evaluation in emergency department, blood pressure 187/96, troponin negative. Pro BNP 37. Laboratory workup was unremarkable. CT of the head revealed no acute intracranial pathology. EKG revealed no acute ischemic changes, sinus bradycardia with heart rate of 43, right bundle branch block. Patient was given aspirin in emergency department and was admitted with diagnosis of accelerated hypertension , sinus bradycardia CONSULTANTS: retread builder Dr. Arciniega [facility] COURSE: Patient admitted to telemetry floor. Cardiology consult requested. Serial troponin were negative. EKG revealed no acute ischemic changes. Patient was ruled out for acute LA. Antihypertensive medication regimen was up-titrated, blood pressure controlled. Echocardiogram revealed preserved ejection fraction of 55-60% and right ventricular systolic pressure of 47 consistent with moderate pulmonary hypertension. Chest x-ray revealed no acute cardiopulmonary pathology. Lipid panel showed elevated LDL. Patient was started on statin. Patient was educated on low-fat low-cholesterol diet. DVT and GI prophylaxis provided. Patient remained bradycardic. Per r retread builder, not uncommon for on athletic people to have asymptomatic sinus bradycardia. He recommended to avoid sinus or AV sharorn blockers. 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 TSH and free T4 were within normal limits. Hemoglobin A1c- 5.1. Patient was stable for discharge home. Stressed the importance of regular follow-up with the primary care provider. FINAL DIAGNOSES: Accelerated hypertension ( due to hypertensive urgency) Sinus bradycardia, asymptomatic Hyperlipidemia DISCHARGE MEDICATIONS: See Medication Reconciliation list. DISCHARGE INSTRUCTIONS: Patient was discharged home. Follow up with primary care provider in one week I have been assigned to dictate discharge summary for this account. I was not involved in the patient's management. Lizabeth Mccartney NP January 25, 2018 16:39
[2018-01-25] MEDS ORDERED: Lisinopril 20mg tab ORAL SCH (21:00)
--- NOTE | 2018-01-28 10:17 | Cardiology Report ---
APPROVED REPORT EXAM: Two-dimensional and M-mode echocardiogram with Doppler and color Doppler. INDICATION Chest Pain M-Mode DIMENSIONS IVSd1.3 (0.7-1.1cm)Left Atrium (MM)3.6 (1.6-4.0cm) LVDd4.8 (3.5-5.6cm)Aortic Root3.2 (2.0-3.7cm) PWd1.4 (0.7-1.1cm)Aortic Cusp Exc.1.9 (1.5-2.0cm) LVDs2.8 (2.5-4.0cm) PWs1.7 cm Normal left ventricular chamber size, systolic function and wall motion. Left ventricular ejection fraction estimated to be 55-60%. Mild left ventricular hypertrophy. No evidence of pericardial effusion. All other cardiac chamber sizes are within normal limits. Focal aortic valve sclerosis with adequate cusp excursion. Thickened mitral valve leaflets with normal excursion. Mild mitral annulus and aortic root calcification. Normal pulmonic valve structure. Normal tricuspid valve structure. IVC dilated at 2.2 cm with physiological collapse, suggestive of increased RA pressure. A color flow and spectral Doppler study was performed and revealed: No aortic insufficiency. Trace mitral regurgitation. Mitral diastolic velocities suggest mild left ventricular diastolic dysfunction (Grade I). Mild tricuspid regurgitation. Tricuspid systolic velocities suggests peak right ventricular systolic pressure of 47 mmHg, consistent with moderate pulmonary hypertension. Trace pulmonic regurgitation present.
== END 2018-01-24 17:05 | disposition home or self-care (01) | DRG 305 ==
LOC: EMR 21:36 → 2E 21:38 → EDBEDREQ 23:53
DX: I16.0 Hypertensive urgency (principal); I45.10 Unspecified right bundle-branch block; Z91.14 Patient's other noncompliance with medication regimen; E78.5 Hyperlipidemia, unspecified; R00.1 Bradycardia, unspecified; Z88.0 Allergy status to penicillin
CPT/HCPCS: 36415; 70450; 71045; 80053; 80061; 82248; 82550; 82553; 82962; 83036; 83880; 84439; 84443; 84484; 85025; 85610; 85730; 93005; 93306; 99285

== ENCOUNTER 2019-03-07 15:56 | Emergency (ER) | payer SELFPAY ==
[~2019-03-07] VITALS: Ht 185.4 cm; Wt 108.9 kg
[~2019-03-07 15:56] MED LIST changes: +ASPIRIN81 MG ORAL; +ATORVASTATIN CA20 MG ORAL; +CEPHALEXIN500 MG ORAL; +CHLORTHALIDONE25 MG ORAL; +MECLIZINE HCL25 M1 ORAL; +NKM; +NORVASC10 MG ORAL
--- NOTE | 2019-03-07 16:00 | NUR ---
ED Nurse Note: Patient walked into ED c/o temporal headache that has been an on going issue for 3 days, denies any vision changes. rates his pain a 6/10. patient got a pacemaker placed 3 months ago and complains of a burning sensation on the site. the site is not open, no discharge noted and is located on the left upper chest. patient is alert and oriented x4 and walks with a steady gait. IV started on left ac 20 gauge.
[2019-03-07 16:11] VITALS: BP 168/83
--- NOTE | 2019-03-07 16:23 | Emergency Room Report ---
History of Present Illness General Chief Complaint: General Complaint Source: Patient Present Illness HPI Patient is a 53-year-old male presented after increased burning sensation to the left side of his chest. Patient had a recent pacemaker placement. He had been having some increased numbness as well as some headache. He denies any fever. He had not been having any cough. Patient a prior history of hypertension. He had recently been hospitalized with bradycardia. This led to pacemaker placement. Patient is followed by Dr. Couch. His business development intern is Dr. Arciniega Allergies: Coded Allergies: PENICILLINS (Verified Allergy, Unknown, 12/10/15) Patient History Past Medical History: see triage record Nursing Documentation-[facility] Past Medical History: No History, Except For Hx Cardiac Problems: Yes - Pacemaker Hx Hypertension: Yes Hx Cancer: No Hx Gastrointestinal Problems: No Hx Neurological Problems: No Review of Systems All Other Systems: negative except mentioned in HPI Physical Exam Vital Signs Date Time Temp Pulse Resp B/P (MAP) Pulse Ox O2 Delivery O2 Flow Rate FiO2 03/07/19 16:03 98.6 61 20 168/83 (111) 96 Room Air Sp02 EP Interpretation: reviewed, normal General Appearance: normal inspection, well appearing, no apparent distress, alert, GCS 15, non-toxic Head: atraumatic ENT: normal ENT inspection, hearing grossly normal, normal voice Neck: normal inspection, full range of motion, supple, no bony tend Respiratory: normal inspection, lungs clear, normal breath sounds, no respiratory distress, no retraction, no wheezing Cardiovascular #1: regular rate, rhythm, no edema Gastrointestinal: normal inspection, normal bowel sounds, non tender, soft, no guarding, no hernia Genitourinary: no CVA tenderness Musculoskeletal: normal inspection, back normal, normal range of motion Neurologic: normal inspection, alert, oriented x3, responsive, adz worker III-XII nml as tested, speech normal Psychiatric: normal inspection, judgement/insight normal, mood/affect normal Medical Decision Making Diagnostic Impression: Primary Impression: Chest pain Additional Impressions: Hypertensive urgency Urinary tract infection ER Course Patient presented for chest pain. Differential diagnosis include is not limited to pacemaker infection, nerve injury, muscle pain, myocardial infarction , viral infection among others. Because of complexity of patient's case laboratory testing and imaging studies were ordered. EKG interpreted by me showed atrial paced rhythm with a rate of [address] or T wave changes right bundle branch block was noted.CT of the head read by radiology showed no evidence of acute intracranial hemorrhage or other intra-acute intracranial pathology. Patient is given medications for pain. Bedside ultrasound showed no evidence of fluid collection near the generator.Patient was given antibiotics for urinary infection.Patient was advised to return if he had any worsening of condition and to follow-up with his business development intern. Labs Test 03/07/19 16:30 03/07/19 16:44 White Blood Count 5.3 K/UL (4.8-10.8) Red Blood Count 4.73 M/UL (4.70-6.10) Hemoglobin 15.3 G/DL (14.2-18.0) Hematocrit 44.6 % (42.0-52.0) Mean Corpuscular Volume 94 FL (80-99) Mean Corpuscular Hemoglobin 32.3 PG (27.0-31.0) Mean Corpuscular Hemoglobin Concent 34.3 G/DL (32.0-36.0) Red Cell Distribution Width 11.0 % (11.6-14.8) Platelet Count 284 K/UL (150-450) Mean Platelet Volume 6.7 FL (6.5-10.1) Neutrophils (%) (Auto) 51.5 % (45.0-75.0) Lymphocytes (%) (Auto) 32.0 % (20.0-45.0) Monocytes (%) (Auto) 12.9 % (1.0-10.0) Eosinophils (%) (Auto) 2.0 % (0.0-3.0) Basophils (%) (Auto) 1.7 % (0.0-2.0) Sodium Level 143 MMOL/L (136-145) Potassium Level 3.4 MMOL/L (3.5-5.1) Chloride Level 108 MMOL/L (98-107) Carbon Dioxide Level 25 MMOL/L (21-32) Anion Gap 10 mmol/L (5-15) Blood Urea Nitrogen 13 mg/dL (7-18) Creatinine 1.1 MG/DL (0.55-1.30) Estimat Glomerular Filtration Rate > 60 mL/min (>60) Glucose Level 100 MG/DL (74-106) Calcium Level 9.5 MG/DL (8.5-10.1) Total Bilirubin 1.0 MG/DL (0.2-1.0) Aspartate Amino Transf (AST/SGOT) 17 U/L (15-37) Alanine Aminotransferase (ALT/SGPT) 20 U/L (12-78) Alkaline Phosphatase 71 U/L (46-116) Total Creatine Kinase 215 U/L (26-308) Creatine Kinase MB 0.6 NG/ML (0.0-3.6) Creatine Kinase MB Relative Index 0.2 Troponin I 0.008 ng/mL (0.000-0.056) Pro-B-Type Natriuretic Peptide 39 pg/mL (0-125) Total Protein 7.6 G/DL (6.4-8.2) Albumin 3.8 G/DL (3.4-5.0) Globulin 3.8 g/dL Albumin/Globulin Ratio 1.0 (1.0-2.7) Urine Color Yellow Urine Appearance Slightly cloudy Urine pH 6 (4.5-8.0) Urine Specific [place] 1.025 (1.005-1.035) Urine Protein 1+ (NEGATIVE) Urine Glucose (UA) Negative (NEGATIVE) Urine Ketones 1+ (NEGATIVE) Urine Blood Negative (NEGATIVE) Urine Nitrite Negative (NEGATIVE) Urine Bilirubin Negative (NEGATIVE) Urine Urobilinogen 4 MG/DL (0.0-1.0) Urine Leukocyte Esterase 1+ (NEGATIVE) Urine RBC 0-2 /HPF (0 - 0) Urine WBC 2-4 /HPF (0 - 0) Urine Squamous Epithelial Cells Few /LPF (NONE/OCC) Urine Bacteria None /HPF (NONE) Urine Mucus Many /LPF (NONE/OCC) Last Vital Signs Date Time Temp Pulse Resp B/P (MAP) Pulse Ox O2 Delivery O2 Flow Rate FiO2 03/07/19 16:11 98.6 62 20 168/83 96 Room Air Status: improved Disposition: HOME, SELF-CARE Condition: Stable Scripts Trimethoprim/Sulfamethoxazole 160/800* (BACTRIM DS TABLET*) 1 Each Tablet 1 TAB ORAL Q12H, #14 TAB 0 Refills Prov: Manny Willams MD 03/07/19 Ibuprofen* (MOTRIN*) 600 Mg Tablet 600 MG ORAL Q8H PRN for For Pain, #30 TAB 0 Refills Prov: Manny Willams MD 03/07/19 Referrals: NOT CHOSEN IPA/,REFERRING (PCP) Manny Willams MD Mar 07, 2019 16:23
--- NOTE | 2019-03-07 16:54 | Diagnostic Imaging Report ---
EXAM: XR Chest, 1 View CLINICAL HISTORY: CP TECHNIQUE: Frontal view of the chest. COMPARISON: No relevant prior studies available. FINDINGS: Lungs: No consolidation. Pleural space: Unremarkable. No pneumothorax. Heart: Pacemaker No cardiomegaly. Mediastinum: Unremarkable. Bones/joints: No acute fracture. IMPRESSION: No acute cardiopulmonary disease.
[2019-03-07 16:55] LABS: BASOPHILS % (AUTO) 1.7 % (0.0-2.0); HEMATOCRIT 44.6 % (42.0-52.0); HEMOGLOBIN 15.3 G/DL (14.2-18.0); MEAN CORPUSCULAR VOLUME 94 FL (80-99); MONOCYTES % (AUTO) 12.9 % (1.0-10.0); NEUTROPHILS % (AUTO) 51.5 % (45.0-75.0); PLATELET COUNT 284 K/UL (150-450); RED BLOOD COUNT 4.73 M/UL (4.70-6.10); WHITE BLOOD COUNT 5.3 K/UL (4.8-10.8)
[2019-03-07 17:00] LABS: APPEARANCE,URINE SLIGHTLY CLOUDY; BILIRUBIN, URINE NEGATIVE (NEGATIVE); GLUCOSE, URINE (UA) NEGATIVE (NEGATIVE); KETONES,URINE 1+ (NEGATIVE); LEUKOCYTE ESTERASE ,URINE 1+ (NEGATIVE); NITRITE,URINE NEGATIVE (NEGATIVE); PH,URINE 6 (4.5-8.0); PROTEIN,URINE 1+ (NEGATIVE); UROBILINOGEN,URINE 4 MG/DL (0.0-1.0)
[2019-03-07 17:03] LABS: COLOR,URINE YELLOW
[2019-03-07 17:12] LABS: ANION GAP 10 mmol/L (5-15); BLOOD UREA NITROGEN 13 mg/dL (7-18); CALCIUM 9.5 MG/DL (8.5-10.1); CARBON DIOXIDE 25 MMOL/L (21-32); CHLORIDE 108 MMOL/L (98-107); CREATININE 1.1 MG/DL (0.55-1.30); POTASSIUM 3.4 MMOL/L (3.5-5.1); SODIUM 143 MMOL/L (136-145)
[2019-03-07 17:26] LABS: ALANINE AMINOTRANSFERASE 20 U/L (12-78); ALBUMIN 3.8 G/DL (3.4-5.0); ALKALINE PHOSPHATASE 71 U/L (46-116); ASPARTATE AMINO TRANSFERASE 17 U/L (15-37); CKMB 0.6 NG/ML (0.0-3.6); CREATINE KINASE 215 U/L (26-308)
[2019-03-07] MEDS ORDERED: cefTRIAXone 1 GM in NS 55 ML IVPB ONE (17:30)
--- NOTE | 2019-03-07 17:30 | Diagnostic Imaging Report ---
EXAM: CT Head Without Intravenous Contrast CLINICAL HISTORY: PAIN TECHNIQUE: Axial computed tomography images of the head/brain without intravenous contrast. CTDI is 70.38 mGy and DLP is 1572 mGy-cm. One or more of the following dose reduction techniques were used: automated exposure control, adjustment of the mA and/or kV according to patient size, use of iterative reconstruction technique. COMPARISON: No relevant prior studies available. FINDINGS: Brain: No hemorrhage. No edema. Ventricles: No ventriculomegaly. Bones/joints: No acute fracture. Soft tissues: Unremarkable. Sinuses: No acute sinusitis. Mastoid air cells: No mastoid effusion. IMPRESSION: No acute intracranial process.
[2019-03-07] MEDS ORDERED: IBUPROFEN600 MG ORAL ×3 (17:39→17:57)
[2019-03-07] MEDS ORDERED: BACTRIM DS TAB1 EAC1 ORAL ×3 (17:39→17:57)
[2019-03-07] MEDS ORDERED: Bactrim-DS 1 tab ORAL ONE (17:45)
[2019-03-07 18:00] VITALS: BP 152/80
--- NOTE | 2019-03-07 18:00 | NUR ---
ER DISCHARGE NOTE: Patient is cleared to be discharged per ERMD, pt is aox4, on room air, with stable vital signs. pt was given dc and prescription instructions, pt was able to verbalize understanding, pt id band and iv site removed without complications. pt is able to ambulate with steady gait. pt took all belongings.
== END 2019-03-07 18:00 | disposition home or self-care (01) ==
LOC: EMR 16:15
DX: R07.9 Chest pain, unspecified (principal); I16.0 Hypertensive urgency; N39.0 Urinary tract infection, site not specified; Z88.0 Allergy status to penicillin; I10 Essential (primary) hypertension; Z95.0 Presence of cardiac pacemaker
CPT/HCPCS: 36415; 70450; 71045; 80053; 81003; 82550; 82553; 83880; 84484; 85025; 93005; 96374; 99284; J0696

== ENCOUNTER 2020-01-23 22:06 | Emergency (ER) | payer OTHER ==
[~2020-01-23] VITALS: Ht 185.4 cm; Wt 106.6 kg
[~2020-01-23 22:06] MED LIST changes: +BACTRIM DS TAB1 EAC1 ORAL
[2020-01-23 22:20] VITALS: BP 135/73
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
[2020-01-23] MEDS ORDERED: IBUPROFEN600 M1 ORAL (22:30)
[2020-01-23] MEDS ORDERED: HYDROcodone/Acetamin 5/325 tab ORAL ONE (22:30)
--- NOTE | 2020-01-23 22:30 | NUR ---
ED Nurse Note: All medications administered, pt tolerated well, no ss of distress noted. Xray at bedside
[2020-01-23 22:42] VITALS: BP 135/73
--- NOTE | 2020-01-23 22:42 | NUR ---
ER DISCHARGE NOTE: Patient is cleared to be discharged home per ERMD, pt is aox4, 99% on room air, with stable vital signs. pt was given dc and prescription instructions, pt was able to verbalize understanding, pt id band removed. pt is able to ambulate with steady gait. pt took all belongings.
--- NOTE | 2020-01-23 22:53 | Diagnostic Imaging Report ---
EXAM: XR Chest, 1 View CLINICAL HISTORY: CP TECHNIQUE: Frontal view of the chest. COMPARISON: 03/07/19 FINDINGS: Lungs: Unremarkable. No consolidation. Pleural space: Unremarkable. No pneumothorax. Heart: Unremarkable. No cardiomegaly. Mediastinum: Unremarkable. Bones/joints: Interval left humeral head degenerative findings incompletely seen, if there is further clinical concern, consider dedicated radiographs. Tubes, lines and devices: Unchanged left chest pacer. IMPRESSION: 1. No acute cardiopulmonary disease. 2. If there is continued concern recommend frontal and lateral chest radiographs or CT. 3. Unchanged left chest pacer. 4. Interval left humeral head degenerative findings incompletely seen, if there is further clinical concern, consider dedicated radiographs.
== END 2020-01-23 22:42 | disposition home or self-care (01) ==
LOC: EMR 22:20
DX: S20.219A Contusion of unspecified front wall of thorax, initial encounter (principal); E66.9 Obesity, unspecified; I10 Essential (primary) hypertension; Z88.0 Allergy status to penicillin; I11.9 Hypertensive heart disease without heart failure; I25.10 Atherosclerotic heart disease of native coronary artery without angina pectoris; Z95.0 Presence of cardiac pacemaker; R51 Headache; V43.52XA Car driver injured in collision with other type car in traffic accident, initial encounter; Y92.410 Unspecified street and highway as the place of occurrence of the external cause; Z68.31 Body mass index [BMI] 31.0-31.9, adult
CPT/HCPCS: 71045; 93005; Z7502; 99283